=== PATIENT | female | born 1970 | race Two or more races ===

== ENCOUNTER → 2017-01-09 | Outpatient (CLI) | payer MEDICAID ==
--- NOTE | 2017-01-17 00:21 | ECWPNPC ---
PATIENT NAME: DAMIR RENDON : 1970 GENDER: FEMALE VISIT DATE: 01/09/2017 DISCHARGE DATE: 01/09/17 0854 VISIT LOCKED DATE TIME: PHYSICIAN: BJ FREEMAN RESOURCE: BJ FREEMAN REASON FOR APPOINTMENT 1. HEAD, BRAIN, JESUS HISTORY OF PRESENT ILLNESS FALL RISK SCREENING: SCREENING :NO FALLS IN THE PAST YEAR 46 YEAR OLD FEMALE PATIENT WITH HISTORY OF CHRONIC NECK PAIN AND HEADACHES. PATIENT STATES THE PAIN ACHING, TENDER, THROBBING, STABBING WITH A PAIN SCORE OF 7-8/10. PATIENT STATES HER PAIN STARTED ROUGHLY A YEAR AGO DUE TO A CHIARI 1 MALFORMATION. PATIENT STATES THAT SHE HAS BEEN SEEN IN A CLINIC IN [place] BUT HAS HAD CONSTANT PAIN. CURRENTLY THE PATIENT IS USING GABAPENTIN, TIZANIDINE, MS CONTIN AND TOPAMAX TO MANAGE THE PAIN. PATIENT STATES THAT MOVING INCLUDING BENDING AND TURNING HER HEAD INCREASES THE PAIN SHE IS HAVING. PATIENT DENIES UNEXPLAINABLE WEIGHT LOSS, FEVER, CHILLS, NEW CHANGES ON HER URINARY OR BOWEL CONTROL. PAIN SCREENING: PATIENT HAS A COMPLAINT OF ACUTE OR CHRONIC PAIN :YES CURRENT MEDICATIONS TAKING THYROID 146.25 MG TABLET 1 TABLET ON AN EMPTY STOMACH ORALLY ONCE A DAY TAKING DEXTROAMPHETAMINE SULFATE ER 10 MG CAPSULE EXTENDED RELEASE 24 HOUR ORALLY BID TAKING DIAZEPAM & DIET MANAGE PROD 5 MG MISCELLANEOUS 2 TABS ORALLY 1 TO 2 DAILY TAKING MS CONTIN 30 MG TABLET EXTENDED RELEASE 12 HOUR 1 TABLET ORALLY EVERY 12 HRS TAKING GABAPENTIN 100 MG CAPSULE ORALLY TID TAKING TIZANIDINE HCL 4 MG TABLET 1 TABLET NEEDED ORALLY 4.5 TIMES A DAY TAKING TOPAMAX 100 MG TABLET 1 TABLET ORALLY TWICE A DAY MEDICATION LIST REVIEWED AND RECONCILED WITH THE PATIENT PAST MEDICAL HISTORY CHIARI MALFORMATION CERVICAL DISC DISEASE/ FACET JOINT SYNDROME/RADICULOPATHY CHRONIC PAIN SYNDROME HYPOTHYROIDISM PTSD SLEEP DISORDER ALLERGIES PENICILLIN SURGICAL HISTORY HYSTERECTOMY MANDIBLE IMPLANT MAXILLARY IMPLANT BILAT BREAST IMPLANTS APPENDECTOMY CHOLECYSTECTOMY FAMILY HISTORY FATHER: ALIVE, DIAGNOSED WITH DIABETES, HYPERTENSION MOTHER: ALIVE, DIAGNOSED WITH HYPERTENSION 1 BROTHER(S) , 1 SISTER(S) - HEALTHY. FATHER HAS BRCA2 GENE (BREAST CA GENE). SOCIAL HISTORY GENERAL: TOBACCO USE ARE YOU A:NONSMOKER LUNG CANCER SCREENING SMOKING STATUS:NON SMOKER ALCOHOL SCREENING POINTS1 INTERPRETATIONNEGATIVE UATSDIN [id number] PRESYBETERIAN LANGUAGE LANGUAGES SPOKEN:SAMMARINESE EDUCATION LEVEL OF EDUCATION:FINISHED COLLEGE PAIN CLINIC PFS, CLERGY, PUBLIC HEALTH REFERRALS HAS THE PATIENT BEEN EDUCATED REGARDING HIS/HER PLAN OF CARE?YES HAS THE PATIENT BEEN EDUCATED REGARDING PAIN, THE RISK FOR PAIN, THE IMPORTANCE OF EFFECTIVE PAIN MANAGEMENT, AND THE PAIN ASSESSMENT PROCESS?YES ADVANCE DIRECTIVES HEALTH CARE PROXY?NO DO YOU HAVE A DNR?NO LIVING WILL?NO POWER OF GARDENER FLORIST?NO HOSPITALIZATION/MAJOR DIAGNOSTIC PROCEDURE SURGERY RELATED REVIEW OF SYSTEMS REVIEWED BY: PROVIDER: BJ FREEMAN MD . CONSTITUTIONAL: ANY CHANGE IN YOUR MEDICAL CONDITION? NO . CHILLS NO . FEVER NO . INFECTION: DO YOU HAVE NEW INFECTIONS? NO . DO YOU HAVE HISTORY OF MRSA? NO . MUSCULOSKELETAL: ANY NEW PATTERNS OF PAIN OR NUMBNESS? NO . SYTEMIC LUPUS NO . GASTROENTEROLOGY: ANY NEW CHANGE IN BOWEL CONTROL? YES, CONSTIPATION . BARRETTS ESOPHAGUS NO . CIRRHOSIS NO . HEPATITIS NO . LIVER FAILURE NO . ACID REFLUX NO . UNEXPLAINED WEIGHT LOSS NO . GENITOURINARY: ANY NEW CHANGE IN BLADDER CONTROL? NO . IS THERE A CHANCE YOU COULD BE ? NO . HEMATOLOGY/LYMPH: DO YOU TAKE ANY BLOOD THINNERS? (FOR EXAMPLE- COUMADIN, PLAVIX, AGGRENOX, PLATEL, PRADAXA, OR XARELTO) NO . WHEN WAS YOUR LAST DOSE? DATE: TIME: . LOW PLATELET COUNT NO . SICKLE CELL DISEASE NO . VON WILLIEBRANDS NO . FACTOR V LEIDEN NO . THALLASEMIA NO . ANEMIA NO . EASY BRUISING NO . NEUROLOGY: HAVE YOU FALLEN IN THE PAST 6 MONTHS? YES, PT STATES SHE FALLS FREQUENTLY, DUE TO LOSS OF BALANCE, PAIN AND WEAKNESS . ANY NEW EXTREMITY NUMBNESS OR WEAKNESS? NO . HEAD INJURY NO . DEMENTIA NO . CEREBRAL PALSY NO . MULTIPLE SCLEROSIS NO . DIZZINESS NO . HEADACHE NO . STROKES NO . VERTIGO NO . CARDIOLOGY: DO YOU HAVE A PACEMAKER OR DEFIBRILLATOR? NO . ANGINA NO . HEART ATTACK NO . HEART SURGERY NO . CONGESTIVE HEART FAILURE/FLUID OVERLOAD NO . CHEST PAIN NO . HIGH BLOOD PRESSURE NO . IRREGULAR HEART BEAT NO . RESPIRATORY: HAVE YOU BEEN SICK IN THE PAST WEEK? NO . FEVER NO . FLU LIKE SYMPTOMS? NO . CPAP NO . BYPAP NO . ASTHMA NO . EMPHYSEMA NO . CHRONIC LUNG DISEASES NO . SHORTNESS OF BREATH ON EXERTION NO . COUGH NO . SNORING NO . INTEGUMENTARY: DO YOU HAVE ANY RASHES OR OPEN SORES? NO . ALLERGIC/IMMUNO: ARE YOU ALLERGIC TO SHELLFISH OR IV DYE? NO . ANY NEW ALLERGIES? NO . PSYCHIATRIC: DO YOU HAVE THOUGHTS OF HURTING YOURSELF OR SOMEONE ELSE? NO . ARE YOU ABUSED, NEGLECTED, OR IN AN UNSAFE ENVIRONMENT? NO . ENDOCRINOLOGY: ARE YOU DIABETIC? NO . THYROID DISORDER HYPOTHYROID . OTHER: DO YOU NEED ANY PRESCRIPTIONS? NO . IF YES, PLEASE LIST: ____ . ANY NEW PROBLEMS WITH YOUR MEDICATIONS? NO . WHEN DID YOU LAST EAT? ____ . WHEN DID YOU LAST DRINK? ____ . WHAT DID YOU LAST DRINK? ____ . NAME OF PERSON DRIVING YOU HOME? ____ . DO YOU HAVE ANY OTHER QUESTIONS OR CONCERNS NO . VITAL SIGNS WT 134.8 LBS, HT 68 IN, BMI 20.49 INDEX, BP 134.8 MM HG, HR 68 /MIN, RR 16 /MIN, TEMP 99.2 F, OXYGEN SAT % 100, NA INITIALS MP 1528. EXAMINATION : PATIENT IS ALERT O X 3 AND COOPERATIVE. TENDERNESS IN THE CERVICAL AREA. 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 MRI OF THE CERVICAL SPINE DONE ON 10/06/13 SHOWS STENOSIS AT C5-C6 ALONG WITH DISC BULGES AT C4-C5 THROUGH C6-C7. ASSESSMENTS CHRONIC MIGRAINE WITHOUT AURA WITHOUT STATUS MIGRAINOSUS, NOT INTRACTABLE - G43.709 (PRIMARY) CERVICAL DISC DISORDER AT C4-C5 LEVEL WITH RADICULOPATHY - M50.121 CERVICAL DISC DISORDER AT C5-C6 LEVEL WITH RADICULOPATHY - M50.122 CERVICAL DISC DISORDER AT C6-C7 LEVEL WITH RADICULOPATHY - M50.123 TREATMENT CHRONIC MIGRAINE WITHOUT AURA WITHOUT STATUS MIGRAINOSUS, NOT INTRACTABLE NOTES: WE DISCUSSED SEVERAL ISSUES WITH MRS. RENDON'S PAIN MANAGEMENT CASE. AT THIS TIME THE PATIENT WILL RECEIVE A REFILL OF HER TOPAMAX DUE TO THE HEADACHES THAT THE PATIENT RECEIVES. WE DISCUSSED THE IMPORTANCE OF HAVING A PRIMARY CARE PHYSICIAN, PATIENT REPORTS SHE WILL BE SEEING DR. JASBIR QUEEN IN THE FUTURE TO BECOME HER PRIMARY CARE. CURRENTLY SHE HAS BEEN SEEING DR. LÓPEZ AT THE [facility]. I WOULD ALSO LIKE TO SPEAK TO HER DOCTORS FROM [place] BEFORE PRESCRIBING MEDICATIONS. PATIENT WILL RETURN IN ONE WEEK AFTER I HAVE SPOKEN WITH THE DOCTORS. INSTRUCTIONS WERE GIVEN, QUESTIONS WERE ANSWERED, PATIENT REPORTS UNDERSTANDING AND AGREES WITH THE PLAN. I, PRATIMA LOVE, DOCUMENTED THE ABOVE INFORMATION ACTING A SCRIBE FOR DR. FREEMAN. I HAVE REVIEWED THE ABOVE DOCUMENT, WRITTEN BY PRATIMA FARIAS AND I VERIFY THAT IT IS ACCURATE. DEAR DR. HULL:THANK YOU FOR YOUR KIND REFERRAL OF MRS. RENDON. IF YOU WANT TO DISCUSS HER CASE WITH ME PLEASE CALL ME AT THE PAIN CENTER AT [phone]. SINCERELY,BJ FREEMAN, [facility]. OTHERS REFILL TOPAMAX TABLET, 100 MG, 1 TABLET, ORALLY FOR PAIN, TWICE A DAY MDD2, 30 DAY(S), 60, REFILLS 0 PROCEDURE CODES FA211 ESTABILISHED PATIENT [facility] CHARGE G8427 DOC MEDS VERIFIED W/PT OR RE G4079 PAIN ASSESS POS TOOL F/U PLAN DOC DISPOSITION & COMMUNICATION FOLLOW UP 1 WEEK ELECTRONICALLY SIGNED BY BJ FREEMAN MD ON 01/16/2017 AT 10:29 AM EDT DISCLAIMER : THIS IS A VISIT SUMMARY EXTRACTED FROM THE [employer] CHART. IT IS NOT A COPY OF THE [employer] PROGRESS NOTE. MTDD
== END ==
LOC: M PAIN 15:15
PROVIDERS: ATTEND Anesthesiology
DX: G43.709 Chronic migraine without aura, not intractable, without status migrainosus (principal); M50.121 Cervical disc disorder at C4-C5 level with radiculopathy; M50.122 Cervical disc disorder at C5-C6 level with radiculopathy; M50.123 Cervical disc disorder at C6-C7 level with radiculopathy; Q07.02 Arnold-Chiari syndrome with hydrocephalus; E03.9 Hypothyroidism, unspecified; G47.9 Sleep disorder, unspecified; Z88.0 Allergy status to penicillin; Z79.899 Other long term (current) drug therapy

== ENCOUNTER → 2017-01-16 | Outpatient (CLI) | payer MEDICAID, OTHER ==
--- NOTE | 2017-01-21 23:52 | ECWPNPC ---
PATIENT NAME: DAMIR RENDON : 1970 GENDER: FEMALE VISIT DATE: 01/16/2017 DISCHARGE DATE: 01/16/17 0841 VISIT LOCKED DATE TIME: PHYSICIAN: BJ FREEMAN RESOURCE: BJ FREEMAN REASON FOR APPOINTMENT 1. HEAD/NECK PAIN HISTORY OF PRESENT ILLNESS HISTORY OF PRESENT ILLNESS: PAIN THE PATIENT DESCRIBES THE PAIN... 46 YEAR OLD FEMALE PATIENT WITH HISTORY OF CHRONIC NECK PAIN AND HEADACHES. PATIENT STATES THE PAIN ACHING, TENDER, THROBBING, STABBING WITH A PAIN SCORE OF 7-8/10. PATIENT STATES HER PAIN STARTED ROUGHLY A YEAR AGO DUE TO A CHIARI 1 MALFORMATION. PATIENT STATES THAT SHE HAS BEEN SEEN IN A CLINIC IN [place] BUT HAS HAD CONSTANT PAIN. CURRENTLY THE PATIENT IS USING GABAPENTIN, TIZANIDINE, MS CONTIN AND TOPAMAX TO MANAGE THE PAIN. MRS. RENDON STATES SHE WILL BE OUT OF HER MEDICATION AND IS CONCERNED SHE WILL NOT RECEIVE A REFILL. PATIENT STATES THAT MOVING INCLUDING BENDING AND TURNING HER HEAD INCREASES THE PAIN SHE IS HAVING. PATIENT DENIES UNEXPLAINABLE WEIGHT LOSS, FEVER, CHILLS, NEW CHANGES ON HER URINARY OR BOWEL CONTROL. FALL RISK SCREENING: SCREENING :NO FALLS IN THE PAST YEAR CURRENT MEDICATIONS TAKING THYROID 146.25 MG TABLET 1 TABLET ON AN EMPTY STOMACH ORALLY ONCE A DAY TAKING DEXTROAMPHETAMINE SULFATE ER 10 MG CAPSULE EXTENDED RELEASE 24 HOUR ORALLY BID TAKING MS CONTIN 30 MG TABLET EXTENDED RELEASE 12 HOUR 1 TABLET ORALLY TID TAKING GABAPENTIN 100 MG CAPSULE ORALLY TID TAKING TIZANIDINE HCL 4 MG TABLET 1 TABLET NEEDED ORALLY 4.5 TIMES A DAY TAKING TOPAMAX 100 MG TABLET 1 TABLET ORALLY FOR PAIN TWICE A DAY MDD2 TAKING DIAZEPAM 10 MG TABLET 1 TABLET NEEDED ORALLY TWICE A DAY TAKING HYDROXYZINE PAMOATE 50 MG CAPSULE 1 CAPSULE NEEDED ORALLY TWICE DAILY NEEDED DISCONTINUED DIAZEPAM & DIET MANAGE PROD 5 MG MISCELLANEOUS 2 TABS ORALLY 1 TO 2 DAILY MEDICATION LIST REVIEWED AND RECONCILED WITH THE PATIENT PAST MEDICAL HISTORY CHIARI MALFORMATION CERVICAL DISC DISEASE/ FACET JOINT SYNDROME/RADICULOPATHY CHRONIC PAIN SYNDROME HYPOTHYROIDISM PTSD SLEEP DISORDER ALLERGIES PENICILLIN REVIEW OF SYSTEMS REVIEWED BY: PROVIDER: BJ FREEMAN MD . CONSTITUTIONAL: ANY CHANGE IN YOUR MEDICAL CONDITION? NO . CHILLS NO . FEVER NO . INFECTION: DO YOU HAVE NEW INFECTIONS? NO . DO YOU HAVE HISTORY OF MRSA? NO . MUSCULOSKELETAL: ANY NEW PATTERNS OF PAIN OR NUMBNESS? YES PAIN IS WORSE WITH DECREASE IN MEDS . GASTROENTEROLOGY: ANY NEW CHANGE IN BOWEL CONTROL? YES VERY CONSTIPATED . GENITOURINARY: ANY NEW CHANGE IN BLADDER CONTROL? NO . IS THERE A CHANCE YOU COULD BE ? NO . HEMATOLOGY/LYMPH: DO YOU TAKE ANY BLOOD THINNERS? (FOR EXAMPLE- COUMADIN, PLAVIX, AGGRENOX, PLATEL, PRADAXA, OR XARELTO) NO . WHEN WAS YOUR LAST DOSE? DATE: TIME: . NEUROLOGY: HAVE YOU FALLEN IN THE PAST 6 MONTHS? NO . ANY NEW EXTREMITY NUMBNESS OR WEAKNESS? NO . CARDIOLOGY: DO YOU HAVE A PACEMAKER OR DEFIBRILLATOR? NO . RESPIRATORY: HAVE YOU BEEN SICK IN THE PAST WEEK? NO . FEVER NO . FLU LIKE SYMPTOMS? NO . COUGH NO . INTEGUMENTARY: DO YOU HAVE ANY RASHES OR OPEN SORES? NO . ALLERGIC/IMMUNO: ARE YOU ALLERGIC TO SHELLFISH OR IV DYE? NO . ANY NEW ALLERGIES? NO . PSYCHIATRIC: DO YOU HAVE THOUGHTS OF HURTING YOURSELF OR SOMEONE ELSE? NO . ARE YOU ABUSED, NEGLECTED, OR IN AN UNSAFE ENVIRONMENT? NO . ENDOCRINOLOGY: ARE YOU DIABETIC? NO . OTHER: DO YOU NEED ANY PRESCRIPTIONS? YES . IF YES, PLEASE LIST: ____ . ANY NEW PROBLEMS WITH YOUR MEDICATIONS? NO . WHEN DID YOU LAST EAT? ____ . WHEN DID YOU LAST DRINK? ____ . WHAT DID YOU LAST DRINK? ____ . NAME OF PERSON DRIVING YOU HOME? ____ . DO YOU HAVE ANY OTHER QUESTIONS OR CONCERNS YES PT REPORTS SHE HAS A PRIMARY CARE PHYSICIAN, JASBIR OCASIO AND/OR MARIBEL LEDEZMA AT THE [facility]. SHE DOES NOT LIKE AFTERNOON APPOINTMENTS, NEEDS AN EARLIER APPOINTMENT. . VITAL SIGNS WT 134 LBS, HT 68 IN, BMI 20.37 INDEX, BP 126/69 MM HG, HR 66 /MIN, RR 18 /MIN, TEMP 97.6 F, OXYGEN SAT % 100%, SAFE IN ENV? (Y/N) YES, NA INITIALS SC 15:21, REVIEWED BY: THOMAS. EXAMINATION : PATIENT IS ALERT O X 3 AND COOPERATIVE. TENDERNESS IN THE CERVICAL AREA. RIGHT ARM AND HAND COTTON FACTOR IS WEAKER THEN THE RIGHT. MRI OF THE CERVICAL SPINE DONE ON 10/06/13 SHOWS STENOSIS AT C5-C6 ALONG WITH DISC BULGES AT C4-C5 THROUGH C6-C7. 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 RENDON'S PAIN MANAGEMENT CASE. AT THIS TIME THE PATIENT WILL RECEIVE A REFILL OF HER TOPAMAX DUE TO THE HEADACHES. PATIENT WILL RECEIVE 2 MS CONTIN FOR A MONTH AND THEN 1 MS CONTIN THE FOLLOWING MONTH DUE TO THE PATIENT NOT HAVING A PRIMARY CARE PHYSICIAN. PATIENT REPORTS HAVING A REFERRAL TO DR. MOY. PATIENT WILL ALSO RECEIVE A PRESCRIPTION OF METHOCARBAMOL FOR THE MUSCLE SPASMS. PATIENT DENIES ABUSE OF ANY MEDICATION, DENIES USE OF ILLEGAL SUBSTACNES, AND STATES SHE IS ONLY USING THE MEDICATION FOR PAIN MANAGEMENT. PATIENT WILL PERFORM A URINE TOXICOLOGY TODAY AND SIGN A NARCOTIC AGREEMENT TODAY. PATIENT WILL FOLLOW UP IN 3 WEEKS. INSTRUCTIONS WERE GIVEN, QUESTIONS WERE ANSWERED, PATIENT REPORTS UNDERSTANDING AND AGREES WITH THE PLAN. I, PRATIMA LOVE, DOCUMENTED THE ABOVE INFORMATION ACTING A SCRIBE FOR DR. FREEMAN. I HAVE REVIEWED THE ABOVE DOCUMENT, WRITTEN BY PRATIMA FARIAS AND I VERIFY THAT IT IS ACCURATE. OTHERS REFILL GABAPENTIN CAPSULE, 300 MG, 1 CAPSULE, ORALLY FOR PAIN, TID, 30 DAYS, 90, REFILLS 1 START METHOCARBAMOL TABLET, 750 MG, 1 TABLET, ORALLY NEEDED FOR PAIN OR SPASMS, EVERY 8 HRS MDD3, 30 DAY(S), 90, REFILLS 1 REFILL MS CONTIN TABLET EXTENDED RELEASE 12 HOUR, 30 MG, 1 TABLET, ORALLY FOR PAIN, BID, 30 DAY(S), 60 TABLET, REFILLS 0 PROCEDURE CODES FA211 ESTABILISHED PATIENT [facility] FACILITY CHARGE G8427 DOC MEDS VERIFIED W/PT OR RE G2066 PAIN ASSESS POS TOOL F/U PLAN DOC DISPOSITION & COMMUNICATION FOLLOW UP 3 WEEKS ELECTRONICALLY SIGNED BY BJ FREEMAN MD ON 01/21/2017 AT 08:57 PM EDT DISCLAIMER : THIS IS A VISIT SUMMARY EXTRACTED FROM THE [employer] CHART. IT IS NOT A COPY OF THE [employer] PROGRESS NOTE. MTDD
== END ==
LOC: M PAIN 15:50
PROVIDERS: ATTEND Anesthesiology
DX: G43.709 Chronic migraine without aura, not intractable, without status migrainosus (principal); M50.121 Cervical disc disorder at C4-C5 level with radiculopathy; M50.122 Cervical disc disorder at C5-C6 level with radiculopathy; M50.123 Cervical disc disorder at C6-C7 level with radiculopathy; Q07.00 Arnold-Chiari syndrome without spina bifida or hydrocephalus; E03.9 Hypothyroidism, unspecified; F43.10 Post-traumatic stress disorder, unspecified; G47.9 Sleep disorder, unspecified; K59.00 Constipation, unspecified; Z88.0 Allergy status to penicillin; Z79.891 Long term (current) use of opiate analgesic; Z79.899 Other long term (current) drug therapy

== ENCOUNTER → 2017-02-08 | Outpatient (CLI) | payer MEDICAID ==
--- NOTE | 2017-02-28 01:13 | ECWPNPC ---
PATIENT NAME: DAMIR RENDON : 1970 GENDER: FEMALE VISIT DATE: 02/08/2017 DISCHARGE DATE: 02/08/17 1225 VISIT LOCKED DATE TIME: PHYSICIAN: BJ FREEMAN RESOURCE: BJ FREEMAN REASON FOR APPOINTMENT 1. NECK PAIN HISTORY OF PRESENT ILLNESS HISTORY OF PRESENT ILLNESS: PAIN THE PATIENT DESCRIBES THE PAIN... 46 YEAR OLD FEMALE PATIENT WITH HISTORY OF CHRONIC NECK PAIN AND HEADACHES. PATIENT STATES THE PAIN ACHING, TENDER, THROBBING, STABBING WITH A PAIN SCORE OF 7-8/10. PATIENT STATES HER PAIN STARTED ROUGHLY A YEAR AGO DUE TO A CHIARI 1 MALFORMATION. CURRENTLY THE PATIENT IS USING GABAPENTIN, TIZANIDINE, MS CONTIN AND TOPAMAX FOR PAIN MANAGEMENT AND STATES THAT IT DOES TAKE THE EDGE OFF. PATIENT STATES THAT MOVING INCLUDING BENDING AND TURNING HER HEAD INCREASES THE PAIN SHE IS HAVING. PATIENT DENIES UNEXPLAINABLE WEIGHT LOSS, FEVER, CHILLS, NEW CHANGES ON HER URINARY OR BOWEL CONTROL. FALL RISK SCREENING: SCREENING :NO FALLS IN THE PAST YEAR CURRENT MEDICATIONS TAKING THYROID 146.25 MG TABLET 1 TABLET ON AN EMPTY STOMACH ORALLY ONCE A DAY TAKING DEXTROAMPHETAMINE SULFATE ER 10 MG CAPSULE EXTENDED RELEASE 24 HOUR ORALLY BID TAKING TOPAMAX 100 MG TABLET 1 TABLET ORALLY FOR PAIN TWICE A DAY MDD2 TAKING DIAZEPAM 10 MG TABLET 1 TABLET NEEDED ORALLY TWICE A DAY TAKING HYDROXYZINE PAMOATE 50 MG CAPSULE 1 CAPSULE NEEDED ORALLY TWICE DAILY NEEDED TAKING GABAPENTIN 300 MG CAPSULE 1 CAPSULE ORALLY FOR PAIN TID TAKING METHOCARBAMOL 750 MG TABLET 1 TABLET ORALLY NEEDED FOR PAIN OR SPASMS EVERY 8 HRS MDD3 TAKING MORPHINE SULFATE ER 30 MG TABLET EXTENDED RELEASE 1 TABLET ORALLY FOR PAIN EVERY 12 HRS MDD2 NOT-TAKING TIZANIDINE HCL 4 MG TABLET 1 TABLET NEEDED ORALLY 4.5 TIMES A DAY NOT-TAKING MS CONTIN 30 MG TABLET EXTENDED RELEASE 12 HOUR 1 TABLET ORALLY FOR PAIN BID MEDICATION LIST REVIEWED AND RECONCILED WITH THE PATIENT PAST MEDICAL HISTORY CHIARI MALFORMATION CERVICAL DISC DISEASE/ FACET JOINT SYNDROME/RADICULOPATHY CHRONIC PAIN SYNDROME HYPOTHYROIDISM PTSD SLEEP DISORDER ALLERGIES PENICILLIN SURGICAL HISTORY HYSTERECTOMY MANDIBLE IMPLANT MAXILLARY IMPLANT BILAT BREAST IMPLANTS APPENDECTOMY CHOLECYSTECTOMY SOCIAL HISTORY GENERAL: TOBACCO USE ARE YOU A:NONSMOKER LUNG CANCER SCREENING SMOKING STATUS:NON SMOKER ALCOHOL SCREENING DID YOU HAVE A DRINK CONTAINING ALCOHOL IN THE PAST YEAR?YES HOW OFTEN DID YOU HAVE A DRINK CONTAINING ALCOHOL IN THE PAST YEAR?MONTHLY OR LESS (1 POINT) POINTS1 INTERPRETATIONNEGATIVE CONFUCIANIST [id number] FAITH LANGUAGE LANGUAGES SPOKEN:KOSOVAN EDUCATION LEVEL OF EDUCATION:FINISHED COLLEGE PAIN CLINIC PFS, CLERGY, PUBLIC HEALTH REFERRALS HAS THE PATIENT BEEN EDUCATED REGARDING HIS/HER PLAN OF CARE?YES HAS THE PATIENT BEEN EDUCATED REGARDING PAIN, THE RISK FOR PAIN, THE IMPORTANCE OF EFFECTIVE PAIN MANAGEMENT, AND THE PAIN ASSESSMENT PROCESS?YES ADVANCE DIRECTIVES HEALTH CARE PROXY?NO DO YOU HAVE A DNR?NO LIVING WILL?NO POWER OF CHIROPRACTIC ASSISTANT?NO HOSPITALIZATION/MAJOR DIAGNOSTIC PROCEDURE SURGERY RELATED REVIEW OF SYSTEMS REVIEWED BY: PROVIDER: BJ FREEMAN MD . CONSTITUTIONAL: ANY CHANGE IN YOUR MEDICAL CONDITION? NO . CHILLS NO . FEVER NO . INFECTION: DO YOU HAVE NEW INFECTIONS? YES, ALLERGIES ARE ACTING UP, STUFFY NOSE . DO YOU HAVE HISTORY OF MRSA? NO . MUSCULOSKELETAL: ANY NEW PATTERNS OF PAIN OR NUMBNESS? YES, PT REPORTS NO PAIN RELIEF . GASTROENTEROLOGY: ANY NEW CHANGE IN BOWEL CONTROL? YES, CONSTIPATION . GENITOURINARY: ANY NEW CHANGE IN BLADDER CONTROL? NO . IS THERE A CHANCE YOU COULD BE ? NO . HEMATOLOGY/LYMPH: DO YOU TAKE ANY BLOOD THINNERS? (FOR EXAMPLE- COUMADIN, PLAVIX, AGGRENOX, PLATEL, PRADAXA, OR XARELTO) NO . WHEN WAS YOUR LAST DOSE? DATE: TIME: . NEUROLOGY: HAVE YOU FALLEN IN THE PAST 6 MONTHS? YES, . ANY NEW EXTREMITY NUMBNESS OR WEAKNESS? NO . CARDIOLOGY: DO YOU HAVE A PACEMAKER OR DEFIBRILLATOR? NO . RESPIRATORY: HAVE YOU BEEN SICK IN THE PAST WEEK? NO . FEVER NO . FLU LIKE SYMPTOMS? NO . COUGH NO . INTEGUMENTARY: DO YOU HAVE ANY RASHES OR OPEN SORES? NO . ALLERGIC/IMMUNO: ARE YOU ALLERGIC TO SHELLFISH OR IV DYE? NO . ANY NEW ALLERGIES? NO . PSYCHIATRIC: DO YOU HAVE THOUGHTS OF HURTING YOURSELF OR SOMEONE ELSE? NO . ARE YOU ABUSED, NEGLECTED, OR IN AN UNSAFE ENVIRONMENT? NO . ENDOCRINOLOGY: ARE YOU DIABETIC? NO . OTHER: DO YOU NEED ANY PRESCRIPTIONS? NO . IF YES, PLEASE LIST: ____ . ANY NEW PROBLEMS WITH YOUR MEDICATIONS? YES, PT REPORTS INCREASED DOSE OF GABAPENTIN FROM DAILY DOSE TO TID HAS MADE HER FEEL HEART PALPITATIONS, SWEATING, NAUSEA, DIZZINESS, PT REDUCED GABAPENTIN TO BID WHICH HAS RELIEVED SIDE EFFECTS, HOWEVER NEUROPATHY IN HANDS AND FEET STILL PERSIST . WHEN DID YOU LAST EAT? ____ . WHEN DID YOU LAST DRINK? ____ . WHAT DID YOU LAST DRINK? ____ . NAME OF PERSON DRIVING YOU HOME? ____ . DO YOU HAVE ANY OTHER QUESTIONS OR CONCERNS YES; PT C/O INCREASED PAIN, PT FEELS CURRENT PAIN REGIMEN IS INEFFECTIVE SHE HAS NOT LEFT THE HOUSE EXCEPT ON 2 OCCASIONS SINCE LAST OFFICE VISIT FOR PAIN. PT DENIES RECEIVING FLU VACCINE THIS YEAR AND DOES NOT PLAN TO GET IT EITHER . VITAL SIGNS WT 134 LBS, HT 68 IN, BMI 20.37 INDEX, BP 122/70 MM HG, HR 59 /MIN, RR 18 /MIN, TEMP 98.5 F, OXYGEN SAT % 94%, NA INITIALS SC 11:16, REVIEWED BY: LORENA. EXAMINATION : PATIENT IS ALERT O X 3 AND COOPERATIVE. TENDERNESS IN THE CERVICAL AREA. 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 MRI OF THE CERVICAL SPINE DONE ON 10/06/13 SHOWS STENOSIS AT C5-C6 ALONG WITH DISC BULGES AT C4-C5 THROUGH C6-C7. 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 RENDON'S PAIN MANAGEMENT CASE. PATIENT WILL CONTINUE WITH SAME MEDICATION REGIME BEFORE. PATIENT HOWEVER WILL INCREASED GABAPENTIN BY 300 MG A DAY TO TRY TO AID IN RELIEF FROM THE NEUROPATHIC PAIN. PATIENT IS USING MORPHINE SULPHATE FOR THE SOMATIC PAIN AND TOPAMAX FOR THE HEADACHES. PATIENT DENIES ABUSE OF ANY MEDICATION, DENIES USE OF ILLEGAL SUBSTANCES AND STATES SHE IS ONLY USING THE MEDICATION FOR PAIN MANAGEMENT. URINE TOXICOLOGY REPORT DONE ON 02/23/2017 SHOWS CONSSITENT RESULTS WITH THE PATIENT'S MEDICATION LIST. ISTOP REVIEWED [id number]. WE DISCUSSED SEVERAL INTERVENTIONS THAT MAY AID THE PATIENT IN PAIN RELIEF AT THIS TIME HOWEVER, THE PATIENT DOES NOT WANT TO MOVE FORWARD WITH ANY INJECTIONS DUE TO PAST HISTORY WITH INJECTIONS. PATIENT REPORTS THAT SHE WILL BE SEEN BY DR. LOPEZ IN THE NEAR FUTURE TO CONTINUE PAIN MANAGEMENT CLOSER TO HER HOME. PATIENT WILL FOLLOW UP IN ONE MONTH. INSTRUCTIONS WERE GIVEN, QUESTIONS WERE ANSWERED, PATIENT REPORTS UNDERSTANDING AND AGREES WITH THE PLAN. I, PRATIMA LOVE, DOCUMENTED THE ABOVE INFORMATION ACTING A SCRIBE FOR DR. FREEMAN. I HAVE REVIEWED THE ABOVE DOCUMENT, WRITTEN BY PRATIMA RIVERSIBMaria Elena AND I VERIFY THAT IT IS ACCURATE. OTHERS REFILL MORPHINE SULFATE ER TABLET EXTENDED RELEASE, 30 MG, 1 TABLET, ORALLY FOR PAIN, EVERY 12 HRS MDD2, 30 DAY(S), 60, REFILLS 0 START CYCLOBENZAPRINE HCL TABLET, 10 MG, 1 TABLET NEEDED, ORALLY FOR SPASM AND PAIN, EVERY 6 HOURS MDD3, 30 DAY(S), 80, REFILLS 1 PROCEDURE CODES FA211 ESTABILISHED PATIENT [facility] FACILITY CHARGE G8427 DOC MEDS VERIFIED W/PT OR RE G8730 PAIN ASSESS POS TOOL F/U PLAN DOC DISPOSITION & COMMUNICATION FOLLOW UP 4 WEEKS ELECTRONICALLY SIGNED BY BJ FREEMAN MD ON 02/26/2017 AT 12:13 PM EST DISCLAIMER : THIS IS A VISIT SUMMARY EXTRACTED FROM THE [employer] CHART. IT IS NOT A COPY OF THE [employer] PROGRESS NOTE. YUAN
== END ==
LOC: M PAIN 11:30
PROVIDERS: ATTEND Anesthesiology
DX: G43.709 Chronic migraine without aura, not intractable, without status migrainosus (principal); M50.121 Cervical disc disorder at C4-C5 level with radiculopathy; M50.122 Cervical disc disorder at C5-C6 level with radiculopathy; M50.123 Cervical disc disorder at C6-C7 level with radiculopathy; G89.29 Other chronic pain; E03.9 Hypothyroidism, unspecified; K59.00 Constipation, unspecified; Q07.00 Arnold-Chiari syndrome without spina bifida or hydrocephalus; Z79.891 Long term (current) use of opiate analgesic; Z79.899 Other long term (current) drug therapy; Z88.0 Allergy status to penicillin

== ENCOUNTER → 2017-03-12 | Outpatient (CLI) | payer MEDICAID ==
--- NOTE | 2017-03-27 00:24 | ECWPNPC ---
PATIENT NAME: DAMIR RENDON : 1970 GENDER: FEMALE VISIT DATE: 03/12/2017 DISCHARGE DATE: 03/12/17 1556 VISIT LOCKED DATE TIME: PHYSICIAN: BJ FREEMAN RESOURCE: BJ FREEMAN REASON FOR APPOINTMENT 1. NECK PAIN HISTORY OF PRESENT ILLNESS HISTORY OF PRESENT ILLNESS: PAIN THE PATIENT DESCRIBES THE PAIN... 46 YEAR OLD FEMALE PATIENT WITH HISTORY OF CHRONIC NECK PAIN AND HEADACHES. PATIENT STATES THE PAIN ACHING, TENDER, THROBBING, STABBING, BURNING, SHARP, TENDER, SORE, SHOOTINGAND HAS IT ALL THE TIME WITH A PAIN SCORE OF 8/10. PATIENT STATES HER PAIN STARTED ROUGHLY A YEAR AGO DUE TO A CHIARI 1 MALFORMATION. CURRENTLY THE PATIENT IS USING GABAPENTIN, TIZANIDINE, MS CONTIN AND TOPAMAX FOR PAIN MANAGEMENT AND STATES THAT IT DOES TAKE THE EDGE OFF. PATIENT STATES THAT MOVING INCLUDING BENDING AND TURNING HER HEAD INCREASES THE PAIN SHE IS HAVING. PATIENT DENIES UNEXPLAINABLE WEIGHT LOSS, FEVER, CHILLS, NEW CHANGES ON HER URINARY OR BOWEL CONTROL. FALL RISK SCREENING: SCREENING :NO FALLS IN THE PAST YEAR CURRENT MEDICATIONS TAKING THYROID 146.25 MG TABLET 1 TABLET ON AN EMPTY STOMACH ORALLY ONCE A DAY TAKING DEXTROAMPHETAMINE SULFATE ER 10 MG CAPSULE EXTENDED RELEASE 24 HOUR ORALLY BID TAKING TOPAMAX 100 MG TABLET 1 TABLET ORALLY FOR PAIN TWICE A DAY MDD2 TAKING DIAZEPAM 10 MG TABLET 1 TABLET NEEDED ORALLY TWICE A DAY TAKING HYDROXYZINE PAMOATE 50 MG CAPSULE 1 CAPSULE NEEDED ORALLY TWICE DAILY NEEDED TAKING GABAPENTIN 300 MG CAPSULE 1 CAPSULE ORALLY FOR PAIN TID TAKING METHOCARBAMOL 750 MG TABLET 1 TABLET ORALLY NEEDED FOR PAIN OR SPASMS EVERY 8 HRS MDD3 TAKING MORPHINE SULFATE ER 30 MG TABLET EXTENDED RELEASE 1 TABLET ORALLY FOR PAIN EVERY 12 HRS MDD2 NOT-TAKING CYCLOBENZAPRINE HCL 10 MG TABLET 1 TABLET NEEDED ORALLY FOR SPASM AND PAIN EVERY 6 HOURS MDD3 NOT-TAKING TIZANIDINE HCL 4 MG TABLET 1 TABLET NEEDED ORALLY 4.5 TIMES A DAY NOT-TAKING MS CONTIN 30 MG TABLET EXTENDED RELEASE 12 HOUR 1 TABLET ORALLY FOR PAIN BID MEDICATION LIST REVIEWED AND RECONCILED WITH THE PATIENT PAST MEDICAL HISTORY CHIARI MALFORMATION CERVICAL DISC DISEASE/ FACET JOINT SYNDROME/RADICULOPATHY CHRONIC PAIN SYNDROME HYPOTHYROIDISM PTSD SLEEP DISORDER ALLERGIES PENICILLIN REVIEW OF SYSTEMS REVIEWED BY: PROVIDER: , BJ FREEMAN MD . CONSTITUTIONAL: ANY CHANGE IN YOUR MEDICAL CONDITION? NO . CHILLS NO . FEVER NO . INFECTION: DO YOU HAVE NEW INFECTIONS? NO . DO YOU HAVE HISTORY OF MRSA? NO . MUSCULOSKELETAL: ANY NEW PATTERNS OF PAIN OR NUMBNESS? NO . GASTROENTEROLOGY: ANY NEW CHANGE IN BOWEL CONTROL? NO . GENITOURINARY: ANY NEW CHANGE IN BLADDER CONTROL? NO . IS THERE A CHANCE YOU COULD BE ? NO . HEMATOLOGY/LYMPH: DO YOU TAKE ANY BLOOD THINNERS? (FOR EXAMPLE- COUMADIN, PLAVIX, AGGRENOX, PLATEL, PRADAXA, OR XARELTO) NO . WHEN WAS YOUR LAST DOSE? DATE: TIME: . NEUROLOGY: HAVE YOU FALLEN IN THE PAST 6 MONTHS? NO . ANY NEW EXTREMITY NUMBNESS OR WEAKNESS? NO . CARDIOLOGY: DO YOU HAVE A PACEMAKER OR DEFIBRILLATOR? NO . RESPIRATORY: HAVE YOU BEEN SICK IN THE PAST WEEK? NO . FEVER NO . FLU LIKE SYMPTOMS? NO . COUGH NO . INTEGUMENTARY: DO YOU HAVE ANY RASHES OR OPEN SORES? NO . ALLERGIC/IMMUNO: ARE YOU ALLERGIC TO SHELLFISH OR IV DYE? NO . ANY NEW ALLERGIES? NO . PSYCHIATRIC: DO YOU HAVE THOUGHTS OF HURTING YOURSELF OR SOMEONE ELSE? NO . ARE YOU ABUSED, NEGLECTED, OR IN AN UNSAFE ENVIRONMENT? NO . ENDOCRINOLOGY: ARE YOU DIABETIC? NO . OTHER: DO YOU NEED ANY PRESCRIPTIONS? YES . IF YES, PLEASE LIST: ____GABAPENTIN, ROBAXIN, MORPHINE SULFATE, TOPAMAX . ANY NEW PROBLEMS WITH YOUR MEDICATIONS? NO . WHEN DID YOU LAST EAT? ____ . WHEN DID YOU LAST DRINK? ____ . WHAT DID YOU LAST DRINK? ____ . NAME OF PERSON DRIVING YOU HOME? ____ . DO YOU HAVE ANY OTHER QUESTIONS OR CONCERNS NO . VITAL SIGNS WT 134.0 LBS, HT 68 IN, BMI 20.37 INDEX, BP 135/67 MM HG, HR 73 /MIN, RR 16 /MIN, TEMP 99.0 F, OXYGEN SAT % 100%, NA INITIALS TL 1431. EXAMINATION : PATIENT IS ALERT O X 3 AND COOPERATIVE. TENDERNESS IN THE CERVICAL AREA. 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 MRI OF THE CERVICAL SPINE DONE ON 10/06/13 SHOWS STENOSIS AT C5-C6 ALONG WITH DISC BULGES AT C4-C5 THROUGH C6-C7. TENDERNESS ON THE RIGHT SIDE OF THE NECK. ASSESSMENTS CHRONIC MIGRAINE W/O AURA W/O STATUS MIGRAINOSUS, NOT INTRACTABLE - G43.709 (PRIMARY) CERVICAL DISC DISORDER AT C4-C5 LEVEL WITH RADICULOPATHY - M50.121 CERVICAL DISC DISORDER AT C5-C6 LEVEL WITH RADICULOPATHY - M50.122 CERVICAL DISC DISORDER AT C6-C7 LEVEL WITH RADICULOPATHY - M50.123 TREATMENT CHRONIC MIGRAINE W/O AURA W/O STATUS MIGRAINOSUS, NOT INTRACTABLE CLINICAL NOTES: WE DISCUSSED SEVERAL ISSUES WITH MRS. RENDON'S PAIN MANAGEMENT CASE. PATIENT WILL CONTINUE WITH SAME MEDICATION REGIME BEFORE. PATIENT HOWEVER WILL INCREASED GABAPENTIN BY 300 MG 3 X DAY TO TRY TO AID IN RELIEF FROM THE NEUROPATHIC PAIN. PATIENT IS USING MORPHINE SULPHATE FOR THE SOMATIC PAIN AND TOPAMAX FOR THE HEADACHES. PATIENT DENIES ABUSE OF ANY MEDICATION, DENIES USE OF ILLEGAL SUBSTANCES AND STATES SHE IS ONLY USING THE MEDICATION FOR PAIN MANAGEMENT. ISTOP REVIEWED [id number]. URINE TOXICOLOGY DONE TODAY. WE DISCUSSED SEVERAL INTERVENTIONS THAT MAY AID THE PATIENT IN PAIN RELIEF AT THIS TIME HOWEVER, THE PATIENT DOES NOT WANT TO MOVE FORWARD WITH ANY INJECTIONS DUE TO PAST HISTORY WITH INJECTIONS. PATIENT REPORTS THAT SHE IS BEING REFERRED TO PAING MANAGEMENT NEAR HER HOME IN THE FUTURE TO CONTINUE PAIN MANAGEMENT CLOSER TO HER HOME. PATIENT STATES SHE IS BEING REFERRED TO NEUROLOGY BY HER PRIMARY FOR BOTOX INJECTIONS. PATIENT WILL FOLLOW UP IN 3 WEEKS. INSTRUCTIONS WERE GIVEN, QUESTIONS WERE ANSWERED, PATIENT REPORTS UNDERSTANDING AND AGREES WITH THE PLAN. I, CARLY MUHAMMAD, DOCUMENTED THE ABOVE INFORMATION ACTING A SCRIBE FOR DR. FREEMAN. I HAVE REVIEWED THE ABOVE DOCUMENT, WRITTEN BY CARLY MUHAMMAD AND I VERIFY THAT IT IS ACCURATE. OTHERS REFILL MORPHINE SULFATE ER TABLET EXTENDED RELEASE, 30 MG, 1 TABLET, ORALLY FOR PAIN, EVERY 12 HRS MDD2, 30 DAY(S), 60, REFILLS 0 REFILL GABAPENTIN CAPSULE, 300 MG, 1 CAPSULE, ORALLY FOR PAIN, TID, 30 DAYS, 90, REFILLS 1 REFILL METHOCARBAMOL TABLET, 750 MG, 1 TABLET, ORALLY NEEDED FOR PAIN OR SPASMS, EVERY 8 HRS MDD3, 30 DAY(S), 90, REFILLS 1 REFILL TOPAMAX TABLET, 100 MG, 1 TABLET, ORALLY FOR PAIN, TWICE A DAY MDD2, 30 DAYS, 60, REFILLS 2 PROCEDURE CODES FA211 ESTABILISHED PATIENT [facility] [id number] DOC MEDS VERIFIED W/PT OR RE G6104 PAIN ASSESS POS TOOL F/U PLAN DOC DISPOSITION & COMMUNICATION FOLLOW UP 4 WEEKS ELECTRONICALLY SIGNED BY BJ FREEMAN MD ON 03/26/2017 AT 09:22 PM EST DISCLAIMER : THIS IS A VISIT SUMMARY EXTRACTED FROM THE [employer] CHART. IT IS NOT A COPY OF THE [employer] PROGRESS NOTE. SHANAD
== END ==
LOC: M PAIN 14:30
PROVIDERS: ATTEND Anesthesiology
DX: G89.29 Other chronic pain (principal); G43.709 Chronic migraine without aura, not intractable, without status migrainosus; M50.121 Cervical disc disorder at C4-C5 level with radiculopathy; M50.122 Cervical disc disorder at C5-C6 level with radiculopathy; M50.123 Cervical disc disorder at C6-C7 level with radiculopathy; E03.9 Hypothyroidism, unspecified; F43.10 Post-traumatic stress disorder, unspecified; Z88.0 Allergy status to penicillin; Z79.899 Other long term (current) drug therapy; Z79.891 Long term (current) use of opiate analgesic

== ENCOUNTER → 2017-04-05 | Outpatient (CLI) | payer MEDICAID | LOC: M PAIN 13:30 | DX: G43.709 Chronic migraine without aura, not intractable, without status migrainosus (principal); M50.121 Cervical disc disorder at C4-C5 level with radiculopathy; M50.122 Cervical disc disorder at C5-C6 level with radiculopathy; M50.123 Cervical disc disorder at C6-C7 level with radiculopathy; Q07.00 Arnold-Chiari syndrome without spina bifida or hydrocephalus; E03.9 Hypothyroidism, unspecified; G47.9 Sleep disorder, unspecified; F43.10 Post-traumatic stress disorder, unspecified; Z88.0 Allergy status to penicillin; Z79.891 Long term (current) use of opiate analgesic; Z79.899 Other long term (current) drug therapy | CPT/HCPCS: G0463 ==

== ENCOUNTER → 2017-05-03 | Outpatient (CLI) | payer OTHER, MEDICAID ==
[~2017-05-03] MED LIST: BOTULINUM INJ 100 UNITS (J0585) IM; diazePAM 5 MG TAB As Ordered
== END ==
LOC: M PAIN 12:30
DX: G43.709 Chronic migraine without aura, not intractable, without status migrainosus (principal); R52 Pain, unspecified; Q07.00 Arnold-Chiari syndrome without spina bifida or hydrocephalus; E03.9 Hypothyroidism, unspecified; F43.10 Post-traumatic stress disorder, unspecified; G47.9 Sleep disorder, unspecified; Z79.82 Long term (current) use of aspirin; Z88.0 Allergy status to penicillin
CPT/HCPCS: J0585

== ENCOUNTER → 2017-05-03 | Outpatient (CLI) | payer OTHER, MEDICAID | LOC: M PAIN 13:45 | DX: G43.709 Chronic migraine without aura, not intractable, without status migrainosus (principal); M50.121 Cervical disc disorder at C4-C5 level with radiculopathy; M50.122 Cervical disc disorder at C5-C6 level with radiculopathy; M50.123 Cervical disc disorder at C6-C7 level with radiculopathy; Q07.00 Arnold-Chiari syndrome without spina bifida or hydrocephalus; E03.9 Hypothyroidism, unspecified; F43.10 Post-traumatic stress disorder, unspecified; G47.9 Sleep disorder, unspecified; Z79.899 Other long term (current) drug therapy; Z88.0 Allergy status to penicillin | CPT/HCPCS: G0463 ==